=== PATIENT | male | born 1965 | race American Indian/Alaskan Native ===

== ENCOUNTER 2017-05-13 08:05 | Emergency (ER) | payer MEDICARE, MEDICAID ==
[2017-05-13 08:30] VITALS: BMI 24.3
--- NOTE | 2017-05-13 09:03 | ED PDOC ---
Arrival/HPI - General Chief Complaint: Substance Abuse Time Seen by Provider: 05/13/17 08:29 Historian: Patient - History of Present Illness Narrative History of Present Illness (Text): 05/13/17 08:50 51 year old male, whose past medical history includes hypertension, and substance abuse (heroin), who presents to the emergency department via EMS. Per EMS, who reported to the nurse, patient was found sleeping by son and when woken up he appeared disoriented, and there was concern for overdose. Patient reports one day ago he went to [facility] for detox bed and had him waiting from 7 AM to 12 AM, but patient became agitated when they told him there were no more beds and so he left. He states he didn't sleep well there so he was just very tired when they woke him up. He currently is asymptomatic but feels fatigue. Patient denies any suicidal ideation or homicidal ideation. He has no chest pain, shortness of breath, vomiting, abdominal pain, fever, or other complaints. Time/Duration: Prior to Arrival Symptom Onset: Sudden Symptom Course: Unchanged Activities at Onset: Rest Context: Home Past Medical History - Provider Review Nursing Documentation Reviewed: Yes - Cardiac Hx Cardiac Disorders: Yes Hx Hypertension: Yes - Psychiatric Hx Substance Use: Yes Family/Social History - Physician Review Nursing Documentation Reviewed: Yes Family/Social History: Unknown Family HX Smoking Status: Current Some Days Smoker Hx Alcohol Use: Yes Frequency of alcohol use: Socially Hx Substance Use: Yes Substance used: heroine Allergies/Home Meds Allergies/Adverse Reactions: Allergies No Known Allergies Allergy (Verified 05/13/17 08:21) Home Medications: Home Meds Medication Instructions Recorded Confirmed No Known Home Med 05/13/17 05/13/17 Review of Systems - Review of Systems Constitutional: absent: Fevers Respiratory: absent: SOB Cardiovascular: absent: Chest Pain Gastrointestinal: absent: Abdominal Pain Genitourinary Male: absent: Dysuria Musculoskeletal: absent: Back Pain Skin: absent: Rash Neurological: absent: Dizziness Endocrine: absent: Diaphoresis Psychiatric: Other (evaluation for substance abuse) Physical Exam Vital Signs Reviewed: Yes Vital Signs Temp Pulse Resp BP Pulse Ox 05/13/17 09:07 98.2 F 81 17 148/99 H 99 Temperature: Afebrile Blood Pressure: Normal Pulse: Regular Respiratory Rate: Normal Appearance: Positive for: Well-Appearing, Non-Toxic, Comfortable Pain Distress: None Mental Status: Positive for: Alert and Oriented X 3 - Systems Exam Head: Present: Atraumatic, Normocephalic Pupils: Present: PERRL Extroacular Muscles: Present: EOMI Conjunctiva: Present: Normal Respiratory/Chest: Present: Clear to Auscultation, Good Air Exchange. No: Respiratory Distress, Accessory Muscle Use, Wheezes, Rales, Retracting, Rhonchi Cardiovascular: Present: Regular Rate and Rhythm, Normal S1, S2. No: Murmurs Neurological: Present: GCS=15, CN II-XII Intact, Speech Normal, Motor Func Grossly Intact, Normal Sensory Function, Memory Normal, Other (walking with no ataxia; no tremors) Skin: Present: Warm, Dry, Normal Color. No: Rashes Psychiatric: Present: Alert, Oriented x 3, Normal Insight, Normal Concentration Medical Decision Making ED Course and Treatment: 05/13/17 Impression: 51 year old male with unremarkable physical exam who cam via EMS for possible overdose. Differential Diagnosis included but are not limited to: He has been asked many questions and it is my assessment that he has capacity to make decisions. By history and physical patient does not appear to be under the influence of any drugs or alcohol. He does not show any evidence of alcohol or drug withdrawal. He denies any overdose. He denies SI or HI. He is clinically sober and will be discharged home. - Lab Interpretations Lab Results: Lab Results 05/13/17 09:05: POC Glucose (mg/dL) 119 H I have reviewed the lab results: Yes - Scribe Statement The provider has reviewed the documentation as recorded by the Marcus Triana Provider Scribe Attestation: All medical record entries made by the Scribe were at my direction and personally dictated by me. I have reviewed the chart and agree that the record accurately reflects my personal performance of the history, physical exam, medical decision making, and the department course for this patient. I have also personally directed, reviewed, and agree with the discharge instructions and disposition. Disposition/Present on Arrival - Present on Arrival Any Indicators Present on Arrival: No History of DVT/PE: No History of Uncontrolled Diabetes: No Urinary Catheter: No History of Decub. Ulcer: No History Surgical Site Infection Following: None - Disposition Have Diagnosis and Disposition been Completed?: Yes Diagnosis: Agitation Disposition: HOME/ ROUTINE Disposition Time: 09:08 Patient Plan: Discharge Condition: IMPROVED Additional Instructions: Mr. Chatterjee, thank you for letting us take care of you today. Your provider was Dr. Hay. You were treated for Agitation. The emergency medical care you received today was directed at your acute symptoms. If you were prescribed any medication, please fill it and take as directed. It may take several days for your symptoms to resolve. Return to the Emergency Department if your symptoms worsen, do not improve, or if you have any other problems. Please contact your doctor or call one of the physicians/clinics you have been referred to that are listed on the Patient Visit Information form that is included in your discharge packet. Bring any paperwork you were given at discharge with you along with any medications you are taking to your follow up visit. Our treatment cannot replace ongoing medical care by a primary care provider (PCP) outside of the emergency department. Thank you for allowing the [facility] team to be part of your care today. If you had an X-Ray or CT scan: A Radiologist will review the ED reading if any change in treatment is needed we will contact you. If you had a blood, urine, or wound culture: It will take several days for the results, if any change in treatment is needed we will contact you. If you had an STI test: It will take 48 hours for the results. Please call after 1 week if you have not heard back. Referrals: Tere Schwartz MD [Primary Care Provider] - Follow up with primary Forms: [employer] (Turkish), WORK NOTE
[2017-05-13 09:08] VITALS: BP 148/99; PULSE 81; RESP 17; TEMP 98.2; O2SAT 99
== END 2017-05-13 09:18 | disposition home or self-care (01) ==
LOC: ED 08:05
DX: R45.1 Restlessness and agitation (principal); I10 Essential (primary) hypertension